=== PATIENT | male | born 1950 | race Caucasian/White ===

== ENCOUNTER 2017-10-15 07:19 | Day surgery (SDC) | payer MEDICARE ==
[2017-10-13 14:12] LABS: BASOPHILS % (AUTO) 0.4 % (0-1); EOSINOPHILS # (AUTO) 0.2 X10'3 (0-0.9); EOSINOPHILS % (AUTO) 3.4 % (0-6); LYMPHOCYTES # (AUTO) 1.6 X10'3 (1.1-4.8); LYMPHOCYTES % (AUTO) 24.5 % (21-51); MEAN CORPUSCULAR HEMOGLOBIN 30.8 PG (27.0-31.0); MEAN CORPUSCULAR HGB CONC 33.5 % (33.0-36.5); MEAN PLATELET VOLUME 9.5 FL (7.4-10.4); MONOCYTES # (AUTO) 1.3 X10'3 (0-0.9); MONOCYTES % (AUTO) 19.9 % (2-12); NEUTROPHILS # (AUTO) 3.3 X10'3 (1.8-7.7); NEUTROPHILS % (AUTO) 51.8 % (42-75); PRE OP HEMATOCRIT 47.5 % (42.0-52.0); PRE OP HEMOGLOBIN 15.9 g/dL (14.0-17.9); PRE OP PLATELET COUNT 164 X10'3 (140-440); RED BLOOD COUNT 5.16 X10'6 (4.70-6.10); RED CELL DISTRIBUTION WIDTH 13.3 % (11.5-14.5)
[2017-10-13 14:27] LABS: ALBUMIN 3.9 G/DL (3.4-5.0); ALBUMIN/GLOBULIN RATIO 1.1 (1.1-1.5); ALKALINE PHOSPHATASE 71 IU/L (46-116); BLOOD UREA NITROGEN 25 MG/DL (7-18); BUN/CREATININE RATIO 18.5 (5.4-32.0); CALCIUM 9.2 MG/DL (8.5-10.1); CHLORIDE 107 MMOL/L (99-107); CREATININE 1.35 MG/DL (0.60-1.10); PRE OP ALT 46 U/L (30-65); PRE OP ANION GAP 7 (8-16); PRE OP AST 33 U/L (10-37); PRE OP BILIRUB, TOTAL 0.3 MG/DL (0.0-1.0); PRE OP GLUCOSE 95 MG/DL (70-104); PRE OP POTASSIUM 4.2 MMOL/L (3.4-5.1); PRE OP SODIUM 143 MMOL/L (135-145); TOTAL CARBON DIOXIDE 28.8 MMOL/L (24-32); TOTAL PROTEIN 7.4 G/DL (6.4-8.2); eGFR 53 ML/MIN
[~2017-10-15] VITALS: Ht 180.3 cm; Wt 96.2 kg
[2017-10-15] VITALS (9 sets, daily range): BP systolic 126–146; BP diastolic 65–87
[~2017-10-15 07:19] MED LIST: ALLO300T8 PO; AMLO10TA13 PO; BENA40TA8 PO; DOXA1TAB2 PO; HYDR-3972 PO; HYDR12.55 PO; MELO-102 PO; PRAV40TA PO; ceFAZolin inj. 2,000 MG in normal saline 100ml IV soln 100 ML IV ONE; famotidine 20mg tablet PO ONE; ringers solution, lacted 1,000 ML IV SCH
[2017-10-15] MEDS ORDERED: ESOM20CA PO (08:02)
[2017-10-15] MEDS ORDERED: ringers solution, lacted 1,000 ML IV SCH (08:56)
[2017-10-15] MEDS ORDERED: morphine 4 MG/ML inj SYRINge IV PRN ×2 (09:00)
[2017-10-15] MEDS ORDERED: meperidine/PF 25mg/ml syringe IV PRN ×2 (09:00)
[2017-10-15] MEDS ORDERED: ondansetron/PF 4mg/2ml inj IV PRN (09:00)
[2017-10-15] MEDS ORDERED: proCHLORperazine 10 MG/2 ml inj IV PRN (09:00)
[2017-10-15] MEDS ORDERED: ROPIVAcaine 0.5% (5mg/ml) 30ml vial ONE (09:18)
[2017-10-15] MEDS ORDERED: LIDOcaine 0.5% (5mg/ml) 50ml vial ONE (09:21)
[2017-10-15] MEDS ORDERED: fentaNYL /PF 50mcg/ml 5ml ampule ONE (09:35)
[2017-10-15] MEDS ORDERED: MIDAZolam 5mg/5ml vial ONE (09:35)
[2017-10-15] MEDS ORDERED: hydrALAZINE 20mg/ml inj. IV ONE (10:43)
[2017-10-15] MEDS: meperidine/PF 25mg/ml syringe IV PRN ×2 (10:52→11:04)
[2017-10-15] MEDS ORDERED: HYDROcodone/acetaminophen 10/325mg tab PO PRN (11:25)
== END 2017-10-15 12:03 | disposition home or self-care (01) ==
LOC: PAS 07:19
PROVIDERS: ATTEND Orthopaedic Surgery Hand Surgery
DX: M18.11 Unilateral primary osteoarthritis of first carpometacarpal joint, right hand (principal); I49.1 Atrial premature depolarization; I10 Essential (primary) hypertension; N40.0 Benign prostatic hyperplasia without lower urinary tract symptoms; M19.90 Unspecified osteoarthritis, unspecified site; K21.9 Gastro-esophageal reflux disease without esophagitis; Z72.89 Other problems related to lifestyle; Z79.891 Long term (current) use of opiate analgesic; Z87.891 Personal history of nicotine dependence; Z79.899 Other long term (current) drug therapy; Z98.890 Other specified postprocedural states
CPT/HCPCS: 25445; 36415; 80053; 85025; 93005; A4565; A6449; J0360; J0690; J2001; J2175; J2250; J2795; J3010; J7030; J7120; L8630; A7000

== ENCOUNTER 2020-08-09 07:20 | Day surgery (SDC) | payer MEDICARE ==
[2020-08-02 16:27] LABS: BASOPHILS % (AUTO) 0.7 % (0-1); EOSINOPHILS # (AUTO) 0.1 X10'3 (0-0.9); EOSINOPHILS % (AUTO) 1.7 % (0-6); LYMPHOCYTES # (AUTO) 1.2 X10'3 (1.1-4.8); LYMPHOCYTES % (AUTO) 19.9 % (21-51); MEAN CORPUSCULAR HEMOGLOBIN 31.6 PG (27.0-31.0); MEAN CORPUSCULAR HGB CONC 33.2 g/dL (33.0-36.5); MEAN PLATELET VOLUME 9.3 FL (7.4-10.4); MONOCYTES # (AUTO) 1.3 X10'3 (0-0.9); MONOCYTES % (AUTO) 21.7 % (2-12); NEUTROPHILS # (AUTO) 3.4 X10'3 (1.8-7.7); PRE OP HEMATOCRIT 45.3 % (42.0-52.0); PRE OP PLATELET COUNT 148 X10'3 (140-440); RED BLOOD COUNT 4.77 X10'6 (4.70-6.10); RED CELL DISTRIBUTION WIDTH 13.4 % (11.5-14.5)
[2020-08-02 16:38] LABS: ALBUMIN 4.1 G/DL (3.4-5.0); ALBUMIN/GLOBULIN RATIO 1.1 (1.1-1.5); ALKALINE PHOSPHATASE 50 IU/L (46-116); BLOOD UREA NITROGEN 29 MG/DL (7-18); BUN/CREATININE RATIO 18.8 (5.4-32.0); CALCIUM 9.1 MG/DL (8.5-10.1); CHLORIDE 104 MMOL/L (99-107); CREATININE 1.54 MG/DL (0.60-1.10); PRE OP ALT 53 U/L (30-65); PRE OP ANION GAP 10 (8-16); PRE OP AST 40 U/L (10-37); PRE OP BILIRUB, TOTAL 0.4 MG/DL (0.0-1.0); PRE OP GLUCOSE 105 MG/DL (70-104); PRE OP POTASSIUM 4.5 MMOL/L (3.4-5.1); PRE OP SODIUM 142 MMOL/L (135-145); TOTAL CARBON DIOXIDE 28.2 MMOL/L (24-32); TOTAL PROTEIN 7.8 G/DL (6.4-8.2); eGFR 45 ML/MIN
[~2020-08-09] VITALS: Ht 180.3 cm; Wt 95.3 kg
[~2020-08-09 07:20] MED LIST changes: +BUPIVAcaine/PF 2.5mg/ml (0.25%) 10ml vial ONE; -ceFAZolin inj. 2,000 MG in normal saline 100ml IV soln 100 ML IV ONE; +cefazolin/dext.iso 2gm/100ml 100 ML IV ONE
[2020-08-09] MEDS ORDERED: LIDOcaine 1% 30ml preserv. free vial ONE (07:24)
[2020-08-09] MEDS ORDERED: fentaNYL/PF 50MCG/1 ML 2ML syringe ONE (09:11)
[2020-08-09] MEDS ORDERED: ketorolac trometh. 30mg/ml inj. ONE (09:12)
[2020-08-09] MEDS ORDERED: midazolam 1 mg/ML 2ml injection ONE (09:12)
[2020-08-09 09:51] VITALS: BP 159/84
[2020-08-09 09:55] VITALS: BP 159/84
[2020-08-09] MEDS ORDERED: propofol inj 20 ML IV ONE (10:18)
[2020-08-09 10:21] VITALS: BP 129/80
--- NOTE | 2020-08-09 10:21 | NUR ---
Received from OR via , accompanied by Anesthesiologist DR FALCON and report given by Anesthesiolgist. AWAKENS TO VOICE. VITALS STABLE. SPLINT DI. ANDI PAIN.
[2020-08-09 10:31] VITALS: BP 133/79
[2020-08-09 10:41] VITALS: BP 145/77
[2020-08-09 10:51] VITALS: BP 142/80
--- NOTE | 2020-08-09 11:01 | NUR ---
AWAKE AND ORIENTED. VITALS STABLE. SPLINT DI. ANDI PAIN. HOME WITH HIS SON AT THIS TIME.
== END 2020-08-09 11:01 | disposition home or self-care (01) ==
LOC: PAS 07:20
PROVIDERS: ATTEND Orthopaedic Surgery Hand Surgery
DX: M18.12 Unilateral primary osteoarthritis of first carpometacarpal joint, left hand (principal); I10 Essential (primary) hypertension; M19.90 Unspecified osteoarthritis, unspecified site; K21.9 Gastro-esophageal reflux disease without esophagitis; Z79.899 Other long term (current) drug therapy; Z98.890 Other specified postprocedural states; Z87.891 Personal history of nicotine dependence
CPT/HCPCS: 25447; 80053; 82948; 85025; 93005; C1762; J1885; J2001; J2250; J2704; J3010; J3490; J7120; A4215; A4618; A7000